=== PATIENT | male | born 1955 | race Caucasian/White ===

== ENCOUNTER → 2018-12-13 | Day surgery (SDC) | payer BC, MEDICARE ==
[~2018-12-13] MED LIST: ACETAMINOPHEN/CODEINE 300MG - 30MG TAB ONE; IBUPROFEN200 MG PO; LIDOCAINE HCL 2% LOCAL INJ 5 ML SDV VIAL INJ ONE; LOSARTAN POTAS100 MG PO; METOCLOPRAMIDE HCL 10 MG/2ML VIAL ONE; OMEPRAZOLE40 MG PO; PHYTONADIONE 10 MG/ML AMP SC ONE; PRENATAL DHA200 MG PO; PROPOFOL IV EMULSION 10 MG/ML 50 ML VIAL ONE; PROPRANOLOL HCL80 MG PO
[2018-12-13 11:30] VITALS: BP 159/77
--- NOTE | 2018-12-13 17:08 | Operative Report ---
DATE OF PROCEDURE: 12/13/2018 SURGEON: Jsoh De Anda MD PROCEDURE: EGD with banding of esophageal varices and biopsies. INDICATION FOR PROCEDURE: Anemia and history of esophageal variceal bleed. MEDICATION: The patient was done under MAC. Please see anesthesiologist's note. PROCEDURE IN DETAIL: With the patient in left lateral decubitus position, a flexible fiberoptic Olympus gastroscope was introduced into the esophagus under direct visualization. Grade 2 esophageal varices were noted. The scope was then advanced with ease into the stomach traversing a small sliding hiatal hernia. Mucosa overlying the antrum and the body revealed some mild changes compatible with mild portal hypertensive gastropathy. Multiple minute nodules were noted in the antrum and biopsies were obtained. The pylorus was of normal contour and shape, it was intubated with ease, and the scope was advanced all the way to the second portion of the duodenum. Biopsies were obtained from the proximal second portion and the duodenal bulb to rule out sprue. The scope was then withdrawn back into the stomach and retroflexed, and there was no evidence of any fundal or cardiac varices. The scope was then straightened out, it was subsequently withdrawn. The scope was then fitted for banding and reintroduced into the esophagus. Five bands were applied to 3 columns of varices. The scope was subsequently withdrawn and the patient tolerated procedure well. IMPRESSION: 1. Esophageal varices, grade 2, 5 bands applied to 3 columns of varices. 2. A small sliding hiatal hernia. 3. Mild portal hypertensive gastropathy. 4. Antrum, several minute nodules, biopsies obtained. 5. Rule out sprue. PLAN: Follow up histology. Continue current therapy. Increase omeprazole to 40 mg one p.o. q.a.m. a.c. Continue Inderal 80 mg one p.o. daily. The patient does have hepatitis C and we will proceed with appropriate therapy. He was very strongly advised to abstain religiously from alcohol. Josh De Anda MD [facility] [place] /[id number] cc: Josh MD Andrea Mitchell MD
--- OUTSIDE RECORDS SUMMARY | 2018-12-15 10:58 | XMS REPORT | Clinical Summary ---
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 Active propranolol (INDERAL) 20 Take 20 mg by 0 MG tablet mouth nightly as needed. 01/02/2018 Discontinued diazePAM (VALIUM) 5 MG Take 5 mg by 0 tablet mouth every 12 (twelve) hours as needed for anxiety. 02/06/2018 thiamine mononitrate, vit Take 1 tablet 30 tablet 0 B1, (B-1) 100 mg tablet (100 mg 8 total) by mouth daily for 30 days. 02/05/2018 ferrous sulfate 325 (65 Take 1 tablet 60 tablet 0 FE) MG tablet (325 mg 8 total) by mouth 2 (two) times a day with meals for 30 days. 02/05/2018 pantoprazole (PROTONIX) Take 1 tablet 30 tablet 0 40 MG EC tablet (40 mg total) 8 by mouth daily for 30 days. 02/05/2018 propranolol (INDERAL) 20 Take 1 tablet 60 tablet 0 MG tablet (20 mg total) 8 by mouth 2 (two) times a day for 30 days. 04/24/2018 esomeprazole (NexIUM) 40 Take 1 15 capsule 0 MG capsule capsule (40 8 mg total) by mouth daily before breakfast for 30 days. 04/29/2018 ondansetron ODT Take 1 tablet 20 tablet 0 (ZOFRAN-ODT) 4 MG (4 mg total) 8 disintegrating tablet by mouth every 8 (eight) hours as needed for nausea or vomiting for up to 30 days. 04/29/2018 simethicone (MYLICON) 80 Chew 1 tablet 25 tablet 0 MG chewable tablet (80 mg total) 8 every 6 (six) hours as needed for flatulence for up to 30 days. 04/29/2018 sertraline (ZOLOFT) 50 MG Take 1 tablet 30 tablet 0 tablet (50 mg total) 8 by mouth daily for 30 days. Active Problems Problem Noted Date Acute GI bleeding 03/25/2018 Upper GI bleed 01/02/2018 Encounters Care Team Description Date Type Specialty Jake Dooley MD ESOPHAGOGASTRODUODENOSCOPY (EGD) 03/27/2018 Surgery Gastroenterology Dakota Medellin MD 03/27/2018 Anesthesia Gastroenterology Event Victor Hugo Bush DO Joglekar, Swati, MD Acute GI bleeding (Primary Dx); Upper GI bleed 03/25/2018 Hospital General Internal Medicine - Encounter 03/30/2018 Desmond Luciano MD Gastrointestinal hemorrhage, unspecified gastrointestinal hemorrhage type (Primary Dx); Constipation, unspecified constipation type; Diverticulosis of large intestine without diverticulitis; Cirrhosis of liver without ascites, unspecified hepatic cirrhosis type; Splenomegaly 03/25/2018 Emergency Emergency Medicine Shawn Simpson MD ESOPHAGOGASTRODUODENOSCOPY (EGD) 01/02/2018 Surgery Gastroenterology vAila Ospina MD 01/02/2018 Anesthesia Gastroenterology Event Marvel Mattson MD Mokkala, Sandhya-Rani, MD Upper GI bleed (Primary Dx) 01/02/2018 Hospital General Internal Medicine - Encounter 01/06/2018 after 12/14/2017 Social History Date Tobacco Use Types Packs/Day Years Used Never Smoker Smokeless Tobacco: Never Used Alcohol Use Drinks/Week oz/Week Comments Yes 1/2 glass of rum daily Sex Assigned at Date Recorded Not on file Industry Job Start Date Occupation Not on file Not on file Not on file Travel End Travel History Travel Start No recent travel history available. Last Filed Vital Signs Time Taken Vital Sign Reading 03/30/2018 11:02 AM CDT Blood Pressure 154/70 03/30/2018 11:02 AM CDT Pulse 48 03/30/2018 11:02 AM CDT Temperature 36.8 C (98.2 F) 03/30/2018 11:02 AM CDT Respiratory Rate 18 03/30/2018 11:02 AM CDT Oxygen Saturation 94% - Inhaled Oxygen - Concentration 03/27/2018 5:00 AM CDT Weight 108 kg (237 lb 7 oz) 03/25/2018 8:17 PM CDT Height 170.2 cm (5' 7") 03/27/2018 5:00 AM CDT Body Mass Index 37.19 Plan of Treatment Health Maintenance Due Date Last Done Comments SHINGLES VACCINES (#1) 2003 INFLUENZA VACCINE 04/23/2018 65+ PNEUMOCOCCAL VACCINE 2018 (1 of 2 - PCV13) PNEUMOCOCCAL 2018 POLYSACCHARIDE VACCINE AGE 65 AND OVER COLON CANCER SCREENING 03/25/2028 03/25/2018 Implants Device Identifier Shelf Expiration Date Model / Serial / Lot Implanted Type 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 02/19/2018 [id number] / / [id number] Ligator Multiple-Band Endoscpc - Surgical N/A: N/A BSC [id number] Implants; ENDOSCOPY Implanted: 01/02/2018 (Quantity not Expanders; on file) Extenders; Surgical Wires 11/07/2018 [id number] / / [id number] Ligator Multiple-Band Endoscpc - Surgical N/A: N/A BSC [id number] Implants; ENDOSCOPY Implanted: 03/27/2018 (Quantity not Expanders; on file) Extenders; Surgical Wires Procedures Comments Procedure Name Priority Date/Time Associated Diagnosis HEMOGLOBIN & HEMATOCRIT Timed 03/28/2018 5:16 PM CDT HEMOGLOBIN & HEMATOCRIT Timed 03/28/2018 8:00 AM CDT ZZESTIMATED GFR Routine 03/28/2018 5:25 AM CDT MAGNESIUM LEVEL Routine 03/28/2018 5:25 AM CDT BASIC METABOLIC PANEL Routine 03/28/2018 5:25 AM CDT HC COMPLETE BLD COUNT Routine 03/28/2018 W/AUTO DIFF 1:30 AM CDT SMEAR REVIEW Timed 03/28/2018 12:00 AM CDT HEMOGLOBIN & HEMATOCRIT Timed 03/28/2018 12:00 AM CDT HEMOGLOBIN & HEMATOCRIT Timed 03/27/2018 4:00 PM CDT TRANSFUSE PLATELETS Routine 03/27/2018 1:03 PM CDT XR CHEST 1 VW PORTABLE STAT 03/27/2018 12:44 PM CDT ESOPHAGOGASTRODUODENOSCOP 03/27/2018 GI bleed Y (EGD) 11:15 AM CDT ZZESTIMATED GFR Routine 03/27/2018 4:50 AM CDT MAGNESIUM LEVEL Routine 03/27/2018 4:50 AM CDT BASIC METABOLIC PANEL Routine 03/27/2018 4:50 AM CDT HC COMPLETE BLD COUNT Routine 03/27/2018 W/AUTO DIFF 4:50 AM CDT HEMOGLOBIN & HEMATOCRIT Routine 03/26/2018 5:05 AM CDT TRANSFUSE RED BLOOD CELLS STAT 03/26/2018 3:35 AM CDT US HEPATIC STAT 03/26/2018 2:23 AM CDT PREPARE PLATELET PHERESIS Timed 03/25/2018 10:30 PM CDT PREPARE RBC Timed 03/25/2018 10:30 PM CDT ZZESTIMATED GFR STAT 03/25/2018 10:30 PM CDT ALCOHOL LEVEL, BLOOD STAT 03/25/2018 10:30 PM CDT COMPREHENSIVE METABOLIC STAT 03/25/2018 PANEL 10:30 PM CDT TYPE AND SCREEN Timed 03/25/2018 10:30 PM CDT PARTIAL THROMBOPLASTIN STAT 03/25/2018 TIME (PTT) 10:30 PM CDT PROTHROMBIN TIME WITH INR STAT 03/25/2018 10:30 PM CDT HC COMPLETE BLD COUNT STAT 03/25/2018 W/AUTO DIFF 10:30 PM CDT TX CRITICAL CARE, E/M Routine 03/25/2018 30-74 MINUTES 10:[address] ABDOMEN PELVIS W STAT 03/25/2018 CONTRAST 3:05 PM CDT URINALYSIS SCREEN AND STAT 03/25/2018 MICROSCOPY, WITH REFLEX 2:01 PM CDT TO CULTURE URINE CULTURE STAT 03/25/2018 2:01 PM CDT ZZESTIMATED GFR STAT 03/25/2018 1:47 PM CDT AMYLASE LEVEL STAT 03/25/2018 1:47 PM CDT LIPASE LEVEL STAT 03/25/2018 1:47 PM CDT PARTIAL THROMBOPLASTIN STAT 03/25/2018 TIME (PTT) 1:47 PM CDT PROTHROMBIN TIME WITH INR STAT 03/25/2018 1:47 PM CDT COMPREHENSIVE METABOLIC STAT 03/25/2018 PANEL 1:47 PM CDT HC COMPLETE BLD COUNT STAT 03/25/2018 W/AUTO DIFF 1:47 PM CDT OCCULT BLOOD, STOOL Routine 03/25/2018 1:20 PM CDT HC COMPLETE BLD COUNT Routine 01/06/2018 W/AUTO DIFF 5:03 AM CDT SMEAR REVIEW Routine 01/05/2018 5:48 AM CDT ZZESTIMATED GFR Routine 01/05/2018 5:48 AM CDT PHOSPHORUS LEVEL Routine 01/05/2018 5:48 AM CDT MAGNESIUM LEVEL Routine 01/05/2018 5:48 AM CDT HC COMPLETE BLD COUNT Routine 01/05/2018 W/AUTO DIFF 5:48 AM CDT COMPREHENSIVE METABOLIC Routine 01/05/2018 PANEL 5:48 AM CDT SMEAR REVIEW Routine 01/04/2018 12:52 PM CDT HC COMPLETE BLD COUNT Routine 01/04/2018 W/AUTO DIFF 12:52 PM CDT SMEAR REVIEW Routine 01/04/2018 4:50 AM CDT ZZESTIMATED GFR Routine 01/04/2018 4:50 AM CDT COMPREHENSIVE METABOLIC Routine 01/04/2018 PANEL 4:50 AM CDT HC COMPLETE BLD COUNT Routine 01/04/2018 W/AUTO DIFF 4:50 AM CDT SMEAR REVIEW Routine 01/03/2018 8:06 PM CDT HC COMPLETE BLD COUNT Routine 01/03/2018 W/AUTO DIFF 8:06 PM CDT ZZESTIMATED GFR Routine 01/03/2018 4:20 AM CDT PROTHROMBIN TIME WITH INR Routine 01/03/2018 4:20 AM CDT COMPREHENSIVE METABOLIC Routine 01/03/2018 PANEL 4:20 AM CDT HC COMPLETE BLD COUNT Routine 01/03/2018 W/AUTO DIFF 4:20 AM CDT TROPONIN STAT 01/02/2018 7:17 PM CDT HC COMPLETE BLD COUNT STAT 01/02/2018 W/AUTO DIFF 7:17 PM CDT TRANSFUSE RED BLOOD CELLS STAT 01/02/2018 5:54 PM CDT XR CHEST 1 VW PORTABLE Routine 01/02/2018 2:07 PM CDT TRANSFUSE RED BLOOD CELLS STAT 01/02/2018 1:40 PM CDT ECG 12-LEAD Routine 01/02/2018 12:47 PM CDT TROPONIN Routine 01/02/2018 12:44 PM CDT ESOPHAGOGASTRODUODENOSCOP 01/02/2018 upper gi bleed Y (EGD) 12:00 PM CDT ECG 12-LEAD STAT 01/02/2018 11:49 AM CDT PREPARE RBC Timed 01/02/2018 9:15 AM CDT ZZESTIMATED GFR STAT 01/02/2018 9:15 AM CDT TYPE AND SCREEN Timed 01/02/2018 9:15 AM CDT LIPASE LEVEL STAT 01/02/2018 9:15 AM CDT AMYLASE LEVEL STAT 01/02/2018 9:15 AM CDT COMPREHENSIVE METABOLIC STAT 01/02/2018 PANEL 9:15 AM CDT PROTHROMBIN TIME WITH INR STAT 01/02/2018 9:15 AM CDT HC COMPLETE BLD COUNT STAT 01/02/2018 W/AUTO DIFF 9:15 AM CDT TX CRITICAL CARE, ADDL 30 Routine 01/02/2018 MIN 9:06 AM CDT after 12/14/2017 Results * Hemoglobin & hematocrit (03/28/2018 5:16 PM CDT) Only the most recent of 5 results within the time period is included. HGB 8.6 (L) 14.0 - 18.0 g/dL [facility] DEPARTMENT OF PATHOLOGY AND GENOMIC MEDICINE HCT 27.1 (L) 41.0 - 51.0 % [facility] DEPARTMENT OF PATHOLOGY AND GENOMIC MEDICINE Specimen Blood Performing Organization Address City/State/Zipcode Phone Number [facility] [place] [place] [address] [place] [address] PATHOLOGY AND GENOMIC MEDICINE * Estimated GFR (03/28/2018 5:25 AM CDT) Only the most recent of 8 results within the time period is included. GFR Non Af Amer 61 mL/min/1.73 m2 [facility] DEPARTMENT OF PATHOLOGY AND GENOMIC MEDICINE GFR Af Amer 74 mL/min/1.73 m2 [facility] DEPARTMENT OF Comment: PATHOLOGY AND Chronic kidney disease: <60 GENOMIC MEDICINE mL/min/1.73m2 Kidney failure: <15 mL/min/1.73m2 The estimated GFR is calculated from the IDMS-traceable Modification of Diet in Renal Disease Equation. The accuracy of the calculation is poor when the creatinine is normal. Calculated values >90 mL/min/1.73m2 are not reported. This equation has not been validated in children (<18 years), women, the elderly (>70 years), or ethnic groups other than Caucasians and Americans. Specimen Plasma specimen Performing Organization Address City/[facility] Phone Number [address] * Magnesium level (03/28/2018 5:25 AM CDT) Only the most recent of 3 results within the time period is included. Magnesium 1.9 1.6 - 2.4 mg/dL [facility] PATHOLOGY [facility] [place] [facility] Specimen Plasma specimen Performing Organization Address City/[facility] Cent[facility] Phone Number [address] * Basic metabolic panel (03/28/2018 5:25 AM CDT) Only the most recent of 2 results within the time period is included. Sodium 140 135 - 148 mEq/L [facility] DEPARTMENT OF PATHOLOGY AND [place] MEDICINE Potassium 4.3 3.5 - 5.0 mEq/L [facility] DEPARTMENT OF PATHOLOGY AND GENOMIC MEDICINE Chloride 109 98 - 112 mEq/L [facility] DEPARTMENT OF PATHOLOGY AND GENOMIC MEDICINE CO2 24 24 - 31 mEq/L [facility] DEPARTMENT OF PATHOLOGY AND GENOMIC MEDICINE Anion gap 7@ANIO 7 - 15 mEq/L [facility] DEPARTMENT OF PATHOLOGY AND GENOMIC MEDICINE BUN 23 8 - 23 mg/dL [facility] DEPARTMENT OF PATHOLOGY AND [place] MEDICINE Creatinine 1.2 0.7 - 1.2 mg/dL [facility] DEPARTMENT OF PATHOLOGY AND GENOMIC MEDICINE Glucose 123 (H) 65 - 99 mg/dL [facility] DEPARTMENT OF PATHOLOGY AND [place] MEDICINE Calcium 7.8 (L) 8.8 - 10.2 mg/dL [facility] DEPARTMENT OF PATHOLOGY AND GENOMIC MEDICINE Specimen Plasma specimen Performing Organization Address City/[facility] Centercode Phone Number [facility] [address] [place] [address] PATHOLOGY [facility] GENOMIC MEDICINE * CBC with platelet and differential (03/28/2018 1:30 AM CDT) Only the most recent of 12 results within the time period is included. WBC 7.03 4.50 - 11.00 k/uL [facility] DEPARTMENT OF PATHOLOGY AND GENOMIC MEDICINE RBC 2.62 (L) 4.40 - 6.00 m/uL [facility] DEPARTMENT OF PATHOLOGY AND GENOMIC MEDICINE HGB 7.9 (L) 14.0 - 18.0 g/dL [facility] DEPARTMENT OF PATHOLOGY AND GENOMIC MEDICINE HCT 25.1 (L) 41.0 - 51.0 % [facility] DEPARTMENT OF PATHOLOGY AND GENOMIC MEDICINE MCV 95.8 82.0 - 100.0 fL [facility] DEPARTMENT OF PATHOLOGY AND GENOMIC MEDICINE MCH 30.2 27.0 - 34.0 pg [facility] DEPARTMENT OF PATHOLOGY AND GENOMIC MEDICINE MCHC 31.5 31.0 - 37.0 g/dL [facility] DEPARTMENT OF PATHOLOGY AND GENOMIC MEDICINE RDW - SD 57.2 (H) 37.0 - 55.0 fL [facility] DEPARTMENT OF PATHOLOGY AND GENOMIC MEDICINE MPV 11.7 8.8 - 13.2 fL [facility] DEPARTMENT OF PATHOLOGY AND GENOMIC MEDICINE Platelet count 68 (L) 150 - 400 k/uL [facility] DEPARTMENT OF PATHOLOGY AND GENOMIC MEDICINE Nucleated RBC 0.00 /100 WBC [facility] DEPARTMENT OF PATHOLOGY AND GENOMIC MEDICINE Neutrophils 70.1 (H) 39.0 - 69.0 % [facility] DEPARTMENT OF PATHOLOGY AND GENOMIC MEDICINE Lymphocytes 20.2 (L) 25.0 - 45.0 % [facility] DEPARTMENT OF PATHOLOGY AND GENOMIC MEDICINE Monocytes 6.8 0.0 - 10.0 % [facility] DEPARTMENT OF PATHOLOGY AND GENOMIC MEDICINE Eosinophils 2.3 0.0 - 5.0 % [facility] DEPARTMENT OF PATHOLOGY AND GENOMIC MEDICINE Basophils 0.3 0.0 - 1.0 % [facility] DEPARTMENT OF PATHOLOGY AND GENOMIC MEDICINE Specimen Blood Performing Organization Address City/[facility]/Zipcode Phone Number [facility] [address] [place] [address] PATHOLOGY AND GENOMIC MEDICINE * Smear review (03/28/2018 12:00 AM CDT) Only the most recent of 5 results within the time period is included. Smear review Smear Reviewed [facility] DEPARTMENT OF PATHOLOGY AND GENOMIC MEDICINE Performing Organization Address City/State/Zipcode Phone Number [facility] [place] [place] [address] [address] [place] [address] PATHOLOGY AND GENOMIC MEDICINE * Transfuse platelets (03/27/2018 1:03 PM CDT) Only the most recent of 2 results within the time period is included. * XR Chest 1 Vw Portable (03/27/2018 12:44 PM CDT) Only the most recent of 2 results within the time period is included. Narrative Performed At EXAMINATION:XR CHEST 1 VW PORTABLE [facility] CLINICAL HISTORY:Chest Pain COMPARISON:2017 FINDINGS: The heart size is mildly enlarged. The mediastinum is otherwise unremarkable. There is mild atelectasis at the left lung base. A vague density projects in the right midlung which may be artifactual although follow-up is suggested. This is at the level of the anterior right third rib. If this density persists follow-up with CT is suggested. IMPRESSION: 1. The heart is mildly enlarged. 2. Mild opacity at the level of the anterior right third rib [id number] Procedure Note Hm Interface, Radiology Results Incoming - 03/27/2018 1:15 PM CDT EXAMINATION: XR CHEST 1 VW PORTABLE CLINICAL HISTORY: Chest Pain COMPARISON: 2017 FINDINGS: The heart size is mildly enlarged. The mediastinum is otherwise unremarkable. There is mild atelectasis at the left lung base. A vague density projects in the right midlung which may be artifactual although follow-up is suggested. This is at the level of the anterior right third rib. If this density persists follow-up with CT is suggested. IMPRESSION: 1. The heart is mildly enlarged. 2. Mild opacity at the level of the anterior right third rib [id number] Performing Organization Address City/State/Zipcode Phone Number [facility] [address] [place] [address] * Transfuse RBC (03/26/2018 3:35 AM CDT) Only the most recent of 4 results within the time period is included. * US Hepatic (03/26/2018 2:23 AM CDT) Narrative Performed At EXAMINATION:US HEPATIC [facility] CLINICAL HISTORY:elevated T-bili ro biliary stones COMPARISON:None. IMPRESSION: Coarse nodular contour of the liver is seen, compatible with cirrhosis. No masses are seen on this limited assessment. If there is further clinical concern for a mass, CT liver mass protocol or MRI would be the exam of choice. The main portal vein measures 1.1 cm and demonstrates expected hepatopedal flow. Common bile measures 3.2 mm. No ascites. No pleural effusion is seen. [id number] Procedure Note Hm Interface, Radiology Results Incoming - 03/26/2018 3:12 AM CDT EXAMINATION: US HEPATIC CLINICAL HISTORY: elevated T-bili ro biliary stones COMPARISON: None. IMPRESSION: Coarse nodular contour of the liver is seen, compatible with cirrhosis. No masses are seen on this limited assessment. If there is further clinical concern for a mass, CT liver mass protocol or MRI would be the exam of choice. The main portal vein measures 1.1 cm and demonstrates expected hepatopedal flow. Common bile measures 3.2 mm. No ascites. No pleural effusion is seen. [id number] Performing Organization Address City/State/Zipcode Phone Number [facility] [address] [place] [address] * Prepare platelet pheresis, 1 Units (03/25/2018 10:30 PM CDT) Product name Apheresis Platelet ACDA LR #1 [facility] DEPARTMENT OF PATHOLOGY AND GENOMIC MEDICINE Unit number [id number] [facility] DEPARTMENT OF PATHOLOGY AND GENOMIC MEDICINE Product code [id number] [facility] DEPARTMENT OF PATHOLOGY AND GENOMIC MEDICINE Dispense status Transfused [facility] DEPARTMENT OF PATHOLOGY AND GENOMIC MEDICINE Blood expiration date [facility] DEPARTMENT OF PATHOLOGY AND GENOMIC MEDICINE Blood type code 9500 [facility] DEPARTMENT OF PATHOLOGY AND GENOMIC MEDICINE Blood type O NEGATIVE [facility] DEPARTMENT OF PATHOLOGY AND GENOMIC MEDICINE Performing Organization Address City/[facility]/Zipcode Phone Number [address] [place] [address] PATHOLOGY AND GENOMIC MEDICINE * Partial thromboplastin time, activated (03/25/2018 10:30 PM CDT) Only the most recent of 2 results within the time period is included. PTT 27.6 23.0 - 36.0 sec [facility] DEPARTMENT OF Comment: PATHOLOGY AND PTT therapeutic range for [facility] unfractionated heparin is 61.0-112.0 seconds which corresponds to Anti-Xa 0.3-0.7 U/ml. Specimen Blood Performing Organization Address [facility] Centerconm Phone Number [address] [place] [address] PATHOLOGY AND [facility] * Prothrombin time with INR (03/25/2018 10:30 PM CDT) Only the most recent of 4 results within the time period is included. Prothrombin time 16.3 (H) 12.0 - 15.0 sec [facility] DEPARTMENT OF PATHOLOGY AND GENOMIC MEDICINE INR 1.3 [facility] DEPARTMENT OF Comment: PATHOLOGY AND The International Normalized [facility] Ratio (INR) is a therapeutic monitoring tool for patients who are stable on oral anticoagulant therapy. An INR of 2.0-3.0 is suggested for deep vein thrombosis/pulmonary embolism. Specimen Blood Performing Organization Address [facility] Phone Number [address] [place] [address] PATHOLOGY [facility] * Prepare RBC, 1 Units (03/25/2018 10:30 PM CDT) Only the most recent of 2 results within the time period is included. Product name Red Blood Cells -1, Leukored [facility] DEPARTMENT OF PATHOLOGY AND GENOMIC MEDICINE Unit number [id number] [facility] DEPARTMENT OF PATHOLOGY AND GENOMIC MEDICINE Product code [id number] [facility] DEPARTMENT OF PATHOLOGY AND GENOMIC MEDICINE Dispense status Transfused [facility] DEPARTMENT OF PATHOLOGY AND GENOMIC MEDICINE Blood expiration date [id number] [facility] DEPARTMENT OF PATHOLOGY AND GENOMIC MEDICINE Blood type code 5100 [facility] DEPARTMENT OF PATHOLOGY AND GENOMIC MEDICINE Blood type O POSITIVE [facility] DEPARTMENT OF PATHOLOGY AND GENOMIC MEDICINE Performing Organization Address [facility] Phone Number [address] [place] [address] PATHOLOGY AND GENOMIC MEDICINE * Type and screen (03/25/2018 10:30 PM CDT) Only the most recent of 2 results within the time period is included. ABO grouping O [facility] DEPARTMENT OF PATHOLOGY AND GENOMIC MEDICINE Rh type POS [facility] DEPARTMENT OF PATHOLOGY AND GENOMIC MEDICINE Antibody screen NEG [facility] DEPARTMENT OF PATHOLOGY AND [place] MEDICINE Specimen Blood Performing Organization Address City/State/Zipcode Phone Number [facility] [place] [address] [place] [address] PATHOLOGY AND GENOMIC MEDICINE * Alcohol level, blood (03/25/2018 10:30 PM CDT) Alcohol None Detected mg/dL [facility] DEPARTMENT OF Comment: PATHOLOGY AND Normal GENOMIC MEDICINE None Detected Legal Intoxication in [place]80 mg/dL (0.08%) - Whole Blood Toxic Concentration 200 mg/dL (0.2%) Potentially Fatal3 50 - 500 mg/dL (0.35 - 0.5%) Alcohol percent None Detected % [facility] DEPARTMENT OF PATHOLOGY AND GENOMIC MEDICINE Specimen Plasma specimen Performing Organization Address City/[facility]/Zipcode Phone Number [place] [address] [address] PATHOLOGY AND GENOMIC MEDICINE * Comprehensive metabolic panel (03/25/2018 10:30 PM CDT) Only the most recent of 6 results within the time period is included. Sodium 138 135 - 148 mEq/L [facility] DEPARTMENT OF PATHOLOGY AND GENOMIC MEDICINE Potassium 4.1 3.5 - 5.0 mEq/L [facility] DEPARTMENT OF PATHOLOGY AND GENOMIC MEDICINE Chloride 104 98 - 112 mEq/L [facility] DEPARTMENT OF PATHOLOGY AND GENOMIC MEDICINE CO2 23 (L) 24 - 31 mEq/L [facility] DEPARTMENT OF PATHOLOGY AND GENOMIC MEDICINE Anion gap 11@ANIO 7 - 15 mEq/L [facility] DEPARTMENT OF PATHOLOGY AND GENOMIC MEDICINE BUN 38 (H) 8 - 23 mg/dL [facility] DEPARTMENT OF PATHOLOGY AND GENOMIC MEDICINE Creatinine 1.0 0.7 - 1.2 mg/dL [facility] DEPARTMENT OF PATHOLOGY AND GENOMIC MEDICINE Glucose 223 (H) 65 - 99 mg/dL [facility] DEPARTMENT OF PATHOLOGY AND GENOMIC MEDICINE Calcium 8.5 (L) 8.8 - 10.2 mg/dL [facility] DEPARTMENT OF PATHOLOGY AND GENOMIC MEDICINE Protein 6.5 6.3 - 8.3 g/dL [facility] DEPARTMENT OF Comment: PATHOLOGY AND [place] GENOMIC MEDICINE 4.6-7.0 g/dL 1 week 4.4-7.6 g/dL 7 months-1year 5.1-7.3 g/dL 1-2 years5.6-7 .5 g/dL >3 years6.0-8 .0 g/dL 18-150 6.3-8.3 g/dL Albumin 3.1 (L) 3.5 - 5.0 g/dL [facility] DEPARTMENT OF PATHOLOGY AND GENOMIC MEDICINE A/G ratio 0.9 0.7 - 3.8 [facility] DEPARTMENT OF PATHOLOGY AND GENOMIC MEDICINE Alkaline phosphatase 80 40 - 129 U/L [facility] DEPARTMENT OF PATHOLOGY AND GENOMIC MEDICINE AST 163 (H) 10 - 50 U/L [facility] DEPARTMENT OF PATHOLOGY AND GENOMIC MEDICINE ALT 148 (H) 5 - 50 U/L [facility] DEPARTMENT OF PATHOLOGY AND GENOMIC MEDICINE Total bilirubin 1.5 (H) 0.0 - 1.2 mg/dL [facility] DEPARTMENT OF PATHOLOGY AND GENOMIC MEDICINE Specimen Plasma specimen Performing Organization Address City/State/Zipcode Phone Number [facility] [address] [address] PATHOLOGY AND GENOMIC MEDICINE * CRITICAL CARE (03/25/2018 10:07 PM CDT) Narrative Performed At Victor Hugo Bush DO 03/26/20183:24 AM Critical Care Performed by: VICTOR HUGO BUSH Authorized by: VICTOR HUGO BUSH Critical care provider statement: Critical care time (minutes):60 Critical care time was exclusive of:Separately billable procedures and treating other patients Critical care was necessary to treat or prevent imminent or life-threatening deterioration of the following conditions:Circulatory failure Critical care was time spent personally by me on the following activities:Development of treatment plan with patient or surrogate, discussions with primary provider, evaluation of patient's response to treatment, examination of patient, obtaining history from patient or surrogate, re-evaluation of patient's condition, pulse oximetry, ordering and review of radiographic studies, ordering and review of laboratory studies and ordering and performing treatments and interventions [place]ila 'yes' if you are taking over critical care for this patient from another provider.: no * CT Abdomen Pelvis W Contrast (03/25/2018 3:05 PM CDT) Addenda Addendum by Miguel A Castellano MD on 03/25/2018 4:21 PM ADDENDUM #1 In the impression of the report it should read: There is a large amount of stool present in the colon Narrative Performed At EXAMINATION:CT ABDOMEN PELVIS W CONTRAST HM [facility]IANT CLINICAL HISTORY: 62 yearsMale Abd painunspecified, abdomenal pain TECHNIQUE: Multiple axial images of the abdomen and pelvis were obtained following intravenous administration of iodinated contrast. Sagittal and coronal computerized reformatted images were also obtained. CT imaging was performed with iterative reconstruction techniques and/or automated exposure control to reduce radiation dose. COMPARISON:None. Findings: The lung bases appear unremarkable. The liver demonstrates diffuse fatty infiltration. Its margins are slightly lobular cirrhosis is not excluded. No focal lesion is visualized. The spleen is enlarged measuring 17 to 18 cm in diameter. A small hypodense lesion along the lateral margin of the superior spleen measuring 15 mm is present which is not definitively characterized although is probably related to small cyst. The adrenal glands pancreas and gallbladder appear within normal limits. There is no free fluid noted in the abdomen or pelvis. The right kidney contains areas of low attenuation probably related to small cysts the largest in the upper pole medially measuring approximately 11 mm. The largest on the left measuring 3.2 cm in the mid lateral cortex consistent with a cyst. No obstructing calculi are identified. There is an opaque structure within the ileum near the cecum which may related to a pill in the GI tract although this is entirely certain. This is most likely in the ileum proximal to the ileocecal valve. The prostate demonstrates some calcification and is mildly enlarged. There is diverticulosis of the sigmoid area in particular without specific evidence of diverticulitis. There are no additional findings of significance noted. There is a fairly large volume of stool present in the colon. IMPRESSION: 1. There is a large amount of present in the colon. There is diverticulosis diffusely involving the sigmoid area. 2. Calcification or other opaque density within the distal ileum proximal to the ileocecal valve etiology uncertain. 3. Splenomegaly with changes suggesting cirrhosis of the liver with a cyst involving the superior spleen laterally although this is not definitive. 4. Probable bilateral renal cysts. [id number] Procedure Note Hm Interface, Radiology Results Incoming - 03/25/2018 3:22 PM CDT EXAMINATION: CT ABDOMEN PELVIS W CONTRAST CLINICAL HISTORY: 62 yearsMale Abd pain unspecified, abdomenal pain TECHNIQUE: Multiple axial images of the abdomen and pelvis were obtained following intravenous administration of iodinated contrast. Sagittal and coronal computerized reformatted images were also obtained. CT imaging was performed with iterative reconstruction techniques and/or automated exposure control to reduce radiation dose. COMPARISON: None. Findings: The lung bases appear unremarkable. The liver demonstrates diffuse fatty infiltration. Its margins are slightly lobular cirrhosis is not excluded. No focal lesion is visualized. The spleen is enlarged measuring 17 to 18 cm in diameter. A small hypodense lesion along the lateral margin of the superior spleen measuring 15 mm is present which is not definitively characterized although is probably related to small cyst. The adrenal glands pancreas and gallbladder appear within normal limits. There is no free fluid noted in the abdomen or pelvis. The right kidney contains areas of low attenuation probably related to small cysts the largest in the upper pole medially measuring approximately 11 mm. The largest on the left measuring 3.2 cm in the mid lateral cortex consistent with a cyst. No obstructing calculi are identified. There is an opaque structure within the ileum near the cecum which may related to a pill in the GI tract although this is entirely certain. This is most likely in the ileum proximal to the ileocecal valve. The prostate demonstrates some calcification and is mildly enlarged. There is diverticulosis of the sigmoid area in particular without specific evidence of diverticulitis. There are no additional findings of significance noted. There is a fairly large volume of stool present in the colon. IMPRESSION: 1. There is a large amount of present in the colon. There is diverticulosis diffusely involving the sigmoid area. 2. Calcification or other opaque density within the distal ileum proximal to the ileocecal valve etiology uncertain. 3. Splenomegaly with changes suggesting cirrhosis of the liver with a cyst involving the superior spleen laterally although this is not definitive. 4. Probable bilateral renal cysts. [facility]-[id number] Performing Organization Address City/State/Zipcode Phone Number [facility] [address] [place] [address] * Urinalysis screen and microscopy, with reflex to culture (03/25/2018 2:01 PM CDT) Specimen site Clean catch [facility] DEPARTMENT OF PATHOLOGY AND GENOMIC MEDICINE Color, UA Yellow [facility] DEPARTMENT OF PATHOLOGY AND GENOMIC MEDICINE Appearance, UA Clear [facility] DEPARTMENT OF PATHOLOGY AND GENOMIC MEDICINE Specific gravity, UA 1.017 1.001 - 1.035 [facility] DEPARTMENT OF PATHOLOGY AND GENOMIC MEDICINE pH, UA 7.0 5.0 - 8.5 [facility] DEPARTMENT OF PATHOLOGY AND GENOMIC MEDICINE Protein, UA Negative Negative [facility] DEPARTMENT OF PATHOLOGY AND GENOMIC MEDICINE Glucose, UA Negative Negative [facility] DEPARTMENT OF PATHOLOGY AND GENOMIC MEDICINE Ketones, UA Negative Negative [facility] DEPARTMENT OF PATHOLOGY AND GENOMIC MEDICINE Bilirubin, UA Negative Negative [facility] DEPARTMENT OF PATHOLOGY AND GENOMIC MEDICINE Blood, UA Negative Negative [facility] DEPARTMENT OF PATHOLOGY AND GENOMIC MEDICINE Nitrite, UA Negative Negative [facility] DEPARTMENT OF PATHOLOGY AND GENOMIC MEDICINE Urobilinogen, UA 2.0 (A) <2.0 [facility] DEPARTMENT OF PATHOLOGY AND GENOMIC MEDICINE Leukocyte esterase, UA Negative Negative [facility] DEPARTMENT OF PATHOLOGY AND GENOMIC MEDICINE WBC, UA 0-5 0 - 1 /HPF [facility] DEPARTMENT OF PATHOLOGY AND GENOMIC MEDICINE RBC, UA 0-5 0 - 5 /HPF [facility] DEPARTMENT OF PATHOLOGY AND GENOMIC MEDICINE Bacteria, UA None seen None seen [facility] DEPARTMENT OF PATHOLOGY AND GENOMIC MEDICINE Yeast, UA None seen [facility] DEPARTMENT OF PATHOLOGY AND GENOMIC MEDICINE Yeast with pseudohyphae, None seen [facility] DEPARTMENT OF UA PATHOLOGY AND GENOMIC MEDICINE Specimen Urine Performing Organization Address [facility] Phone Number [address] [place] [address] [facility] MEDICINE * Urine culture (03/25/2018 2:01 PM CDT) Urine culture SEE COMMENTComment: [facility] DEPARTMENT OF Bacteriuria screen negative. PATHOLOGY AND GENOMIC MEDICINE Specimen Urine Performing Organization Address [facility] Number [address] [place] [address] PATHOLOGY [facility] * Lipase level (03/25/2018 1:47 PM CDT) Only the most recent of 2 results within the time period is included. Lipase 30 13 - 60 U/L [facility] DEPARTMENT OF PATHOLOGY AND GENOMIC MEDICINE Specimen Plasma specimen Performing Organization Address [facility] Phone Number [address] [place] [address] PATHOLOGY [facility] * Amylase level (03/25/2018 1:47 PM CDT) Only the most recent of 2 results within the time period is included. Amylase 65 13 - 73 U/L [facility] DEPARTMENT OF PATHOLOGY AND GENOMIC MEDICINE Specimen Plasma specimen Performing Organization Address [facility] Phone Number [address] [place] [address] PATHOLOGY [facility] * Occult blood, stool (03/25/2018 1:20 PM CDT) Occult blood, stool Positive for Occult blood (A) [facility] DEPARTMENT OF Comment: PATHOLOGY AND Specimen Information [facility] MEDICINE Specimen Source: Stool Specimen Site: Not otherwise specified Specimen Stool - Not otherwise specified Performing Organization Address [facility] Phone Number [address] [place] [address] PATHOLOGY AND GENOMIC MEDICINE * Phosphorus level (01/05/2018 5:48 AM CDT) Phosphorus 2.6 2.4 - 4.5 mg/dL [facility] DEPARTMENT OF PATHOLOGY AND [place] MEDICINE Specimen Plasma specimen Performing Organization Address [facility] Phone Number [address] [place] [address] PATHOLOGY AND [place] MEDICINE * Troponin (01/02/2018 7:17 PM CDT) Only the most recent of 2 results within the time period is included. Troponin <0.300 0.000 - 0.300 ng/mL [facility] DEPARTMENT OF Comment: PATHOLOGY AND 0.30 - 1.49 GENOMIC MEDICINE ng/mlMay indicate increased risk of acute coronary syndrome. >=1.5 ng/ml Consistent with acute myocardial infarction. The diagnostic value of a single normal or non-diagnostic result is questionable.Serial samples at 2-6 hour intervals are required to rule out acute myocardial injury. Specimen Plasma specimen Performing Organization Address [facility] Phone Number [address] [place] [address] PATHOLOGY AND [place] MEDICINE * ECG 12 lead (01/02/2018 12:47 PM CDT) Only the most recent of 2 results within the time period is included. Ventricular rate 83 [facility] Atrial rate 83 [facility] TX interval 150 [facility] QRSD interval 86 [facility] QT interval 382 [facility] QTC interval 448 [facility] P axis 1 30 [facility] QRS axis 1 36 [facility] T wave axis 38 [facility] EKG impression Normal sinus rhythm-Normal [facility] ECG-In automated comparison with ECG of 02-JAN-2018 11:49,-No significant change was found- Performing Organization Address [facility] Phone Number [facility] [address] [place] [address] * CRITICAL CARE (01/02/2018 9:06 AM CDT) Narrative Performed At Marvel Barnes MD 01/02/2018 10:26 AM Critical Care Performed by: MARVEL MATTSON Authorized by: MARVEL MATTSON Critical care provider statement: Critical care time (minutes):30 Critical care time was exclusive of:Separately billable procedures and treating other patients Critical care was necessary to treat or prevent imminent or life-threatening deterioration of the following conditions: blood transfusion Critical care was time spent personally by me on the following activities:Blood draw for specimens, discussions with consultants, development of treatment plan with patient or surrogate, discussions with primary provider, evaluation of patient's response to treatment, examination of patient, obtaining history from patient or surrogate, review of old charts, re-evaluation of patient's condition, pulse oximetry, ordering and review of radiographic studies, ordering and review of laboratory studies and ordering and performing treatments and interventions Avila 'yes' if you are taking over critical care for this patient from another provider.: yes after 12/14/2017 Advance Directives Patient has advance care planning documents, and code status on file. For more i nformation, please contact: Shawn Fitzpatrick [address] [place] [address] Date Inactivated Comments Code Status Date Activated 01/06/2018 9:57 PM Full Code 01/02/2018 11:20 AM Code Status decision reached by: Patient
== END | disposition home or self-care (01) ==
LOC: OR 06:23
PROVIDERS: ATTEND Internal Medicine Gastroenterology
DX: I85.00 Esophageal varices without bleeding (principal); R94.5 Abnormal results of liver function studies; D64.9 Anemia, unspecified; G47.33 Obstructive sleep apnea (adult) (pediatric); I25.2 Old myocardial infarction; K44.9 Diaphragmatic hernia without obstruction or gangrene; K76.6 Portal hypertension; K31.89 Other diseases of stomach and duodenum
CPT/HCPCS: 43239; 43244; J2001; J2704; J2765; J3430

== ENCOUNTER → 2019-01-17 | Day surgery (SDC) | payer BC, MEDICARE ==
[2019-01-14 11:04] LABS: INR 1.05; PROTHROMBIN TIME 14.2 seconds (11.9-14.5)
[2019-01-14 11:05] LABS: PARTIAL THROMBOPLASTIN TIME 30.4 seconds (23.8-35.5)
[2019-01-14 11:06] LABS: BASOPHILS % 0.5 % (0.0-1.0); EOSINOPHILS # (AUTO) 0.2 (0.0-0.4); EOSINOPHILS % 4.3 % (0.0-6.0); HEMATOCRIT 38.2 % (38.2-49.6); HEMOGLOBIN 11.9 g/dL (14.0-18.0); LYMPHOCYTES # (AUTO) 0.9 (1.0-3.2); LYMPHOCYTES % 22.5 % (18.0-39.1); MEAN CORPUSCULAR HEMOGLOBIN 28.7 pg (28-32); MEAN CORPUSCULAR HGB CONC 31.2 g/dL (31-35); MEAN CORPUSCULAR VOLUME 92.3 fL (81-99); MONOCYTES # (AUTO) 0.5 (0.2-0.8); MONOCYTES % 11.1 % (4.4-11.3); NEUTROPHILS # (AUTO) 2.5 (2.1-6.9); NEUTROPHILS % 61.4 % (38.7-80.0); RED BLOOD COUNT 4.14 x10e6/uL (4.3-5.7); RED CELL DISTRIBUTION WIDTH 24.2 % (11.7-14.4)
[2019-01-14 11:13] LABS: ALANINE AMINOTRANSFERASE 263 IU/L (0-55); ALBUMIN 3.2 g/dL (3.5-5.0); ALBUMIN/GLOBULIN RATIO 0.8 (0.8-2.0); ALKALINE PHOSPHATASE 78 IU/L (40-150); ANION GAP 9.4 mmol/L (8-16); BLOOD UREA NITROGEN 22 mg/dL (7-26); BUN/CREATININE RATIO 21 (6-25); CALCIUM 9.6 mg/dL (8.4-10.2); CARBON DIOXIDE 27 mmol/L (22-29); CHLORIDE 103 mmol/L (98-107); CREATININE, SERUM 1.03 mg/dL (0.72-1.25); EST GLOMERULAR FILTRATION RATE > 60 ML/MIN (60-); GLUCOSE 117 mg/dL (74-118); POTASSIUM 4.4 mmol/L (3.5-5.1); SODIUM 135 mmol/L (136-145)
[2019-01-14 11:36] LABS: PLATELET COUNT 52 x10e3/uL (140-360)
[2019-01-14 11:41] LABS: ANISOCYTOSIS SLIGHT; HYPOCHROMASIA SLIGHT; PLATELET ESTIMATE SLIGHTLY DECREASED; PLATELET MORPHOLOGY COMMENT NORMAL; RBC MORPHOLOGY COMMENT NORMAL
[~2019-01-17] MED LIST changes: -ACETAMINOPHEN/CODEINE 300MG - 30MG TAB ONE; +FENTANYL CITRATE/PF 100MCG/2 ML INJ ONE; -METOCLOPRAMIDE HCL 10 MG/2ML VIAL ONE; +MIDAZOLAM HCL 2 MG/2 ML VIAL ONE; -PHYTONADIONE 10 MG/ML AMP SC ONE
[2019-01-17 09:10] VITALS: BP 195/102
--- NOTE | 2019-01-17 16:20 | Operative Report ---
DATE OF PROCEDURE: 01/17/2019 SURGEON: Josh De Anda MD PROCEDURE: Esophagogastroduodenoscopy with banding of esophageal varices. INDICATIONS FOR PROCEDURE: Cirrhosis of the liver, status post EGD with banding. In for additional banding of esophageal varices. MEDICATIONS: The patient was done under MAC, please see anesthesiologist's note. PROCEDURE IN DETAIL: With the patient in left lateral decubitus position, flexible fiberoptic Olympus gastroscope was introduced into the esophagus under direct visualization without any difficulty. Grade 2 to 3 esophageal varices were noted without active bleeding. One varix had a little red reginaldo, the scope was then advanced with ease into the stomach and there were mucosal changes compatible with portal hypertensive gastropathy more prominent in the antrum. The pylorus was intubated and the scope was advanced into the terminal ileum. The scope was then withdrawn slowly, mucosa overlying the proximal second portion and the duodenal bulb grossly appeared to be within normal limits. The scope was then withdrawn back into the stomach and retroflexed, mucosa overlying the fundus and the cardia grossly appeared to be within normal limits. There was no evidence of cardia or fundal varices. The scope was then straightened out, it was subsequently withdrawn. The scope was then fitted for banding was reintroduced into the esophagus. Six bands were applied to 3 columns of varices. The patient tolerated the procedure well. IMPRESSION: 1. Grade 2 to 3 esophageal varices, six bands applied to 3 columns of varices. 2. Portal hypertensive gastropathy. PLAN: Follow H and H. Continue Inderal 80 mg one p.o. daily, Protonix 40 mg one p.o. q.a.m. a.c. The patient was very strongly advised to abstain religiously from alcohol. Josh De Anda MD [facility] /[id number] cc: Andrea Miller MD
--- OUTSIDE RECORDS SUMMARY | 2019-01-19 10:56 | XMS REPORT | Clinical Summary ---
Author Author [place] [facility] Organization [place] [facility] Address Unknown Phone Unavailable Care Team Providers Care Pourer Buggy Ladle Name Role Phone Asked, No Pcp PCP Unavailable Allergies No Known Allergies Medications End Date Status Medication Sig Dispensed Refills Start Date Active propranolol (INDERAL) 10 Take 30 mg by 0 MG tablet mouth every morning. Active propranolol (INDERAL) 20 Take 20 mg by 0 MG tablet mouth nightly as needed. 02/06/2018 thiamine mononitrate, vit Take 1 tablet [...] bleeding (Primary Dx); Upper GI bleed 03/25/2018 [facility] Internal Medicine - Encounter 03/30/2018 Desmond Luciano MD Gastrointestinal hemorrhage, unspecified gastrointestinal hemorrhage type (Primary Dx); Constipation, unspecified constipation type; Diverticulosis of large intestine without diverticulitis; Cirrhosis of liver without ascites, unspecified hepatic cirrhosis type; Splenomegaly 03/25/2018 Emergency Emergency Medicine after 01/18/2018 Social History Date Tobacco Use Types Packs/Day [...] Last Done Comments SHINGLES VACCINES (#1) 2003 65+ PNEUMOCOCCAL VACCINE 2018 (1 of 2 - PCV13) PNEUMOCOCCAL 2018 POLYSACCHARIDE VACCINE AGE 65 AND OVER INFLUENZA VACCINE 04/23/2019 COLON CANCER SCREENING 03/25/2028 03/25/2018 Implants Device Identifier Shelf Expiration Date Model / Serial / Lot Implanted Type 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 02/19/2018 [id number] / / [id number] Ligator Multiple-Band Endoscpc - Surgical N/A: N/A BS [id number] Implants; ENDOSCOPY Implanted: 01/02/2018 (Quantity not Expanders; on file) Extenders; Surgical Wires 11/07/2018 [id number] / / [id number] Ligator Multiple-Band Endoscpc - Surgical N/A: N/A [facility] [place] [id number] Implants; ENDOSCOPY Implanted: 03/27/2018 (Quantity not Expanders; [...] STAT 03/25/2018 W/AUTO DIFF 10:30 PM CDT [facility] CRITICAL CARE, E/M Routine 03/25/2018 30-74 MINUTES [...] BLOOD, STOOL Routine 03/25/2018 1:20 PM CDT after 01/18/2018 Results * Hemoglobin & hematocrit (03/28/2018 5:16 PM CDT) Only the most recent of 5 results within the time period is included. HGB 8.6 (L) 14.0 - 18.0 g/dL [facility] DEPARTMENT OF PATHOLOGY AND GENOMIC MEDICINE HCT 27.1 (L) 41.0 - 51.0 % [facility] DEPARTMENT OF PATHOLOGY AND GENOMIC MEDICINE Specimen Blood Performing Organization Address City/State/Zipcode Phone Number [place] [address] [place] [address] PATHOLOGY AND GENOMIC MEDICINE * Estimated GFR (03/28/2018 5:25 AM CDT) Only the most recent of 4 results within the time period is included. GFR Non Af Amer 61 mL/min/1.73 m2 [facility] DEPARTMENT OF PATHOLOGY AND GENOMIC MEDICINE GFR Af Amer 74 mL/min/1.73 m2 [facility] DEPARTMENT OF Comment: PATHOLOGY AND Chronic kidney [...] Americans. Specimen Plasma specimen Performing Organization Address [facility] Phone Number [address] * Magnesium level (03/28/2018 5:25 AM CDT) Only the most recent of 2 results within the time period is included. Magnesium 1.9 1.6 - 2.4 mg/dL [facility] Specimen Plasma specimen Performing Organization Address [facility] Phone Number [address] * Basic metabolic panel (03/28/2018 5:25 AM CDT) Only the most recent of 2 results within the time period is included. Sodium 140 135 - 148 mEq/L [facility] DEPARTMENT OF PATHOLOGY AND [facility] Potassium 4.3 3.5 - 5.0 mEq/L [facility] DEPARTMENT PATHOLOGY AND GENOMIC [facility] Chloride 109 98 - 112 mEq/L [facility] PATHOLOGY [facility] CO2 24 24 - 31 mEq/L [facility] PATHOLOGY [facility] Anion gap 7@ANIO 7 - 15 mEq/L [facility] DEPARTMENT PATHOLOGY AND [facility] BUN 23 8 - 23 mg/dL [facility] PATHOLOGY AND [facility] Creatinine 1.2 0.7 - 1.2 mg/dL [facility] PATHOLOGY [facility] Glucose 123 (H) 65 - 99 mg/dL [facility] PATHOLOGY [facility] Calcium 7.8 (L) 8.8 - 10.2 mg/dL [facility] PATHOLOGY [facility] Specimen Plasma specimen Performing Organization Address [facility] Phone Number [address] * CBC with platelet and differential (03/28/2018 1:30 AM CDT) Only the most recent of 4 results within the time period is included. WBC 7.03 4.50 - 11.00 k/uL [facility] DEPARTMENT OF PATHOLOGY AND GENOMIC MEDICINE RBC 2.62 (L) 4.40 - 6.00 m/uL [facility] DEPARTMENT OF PATHOLOGY AND GENOMIC MEDICINE HGB 7.9 (L) 14.0 - 18.0 g/dL [facility] DEPARTMENT OF PATHOLOGY AND GENOMIC MEDICINE HCT 25.1 (L) 41.0 - 51.0 % [facility] DEPARTMENT OF PATHOLOGY AND GENOMIC MEDICINE MCV 95.8 82.0 - 100.0 fL [facility] DEPARTMENT OF PATHOLOGY AND GENOMIC MEDICINE MCH 30.2 27.0 - 34.0 pg [facility] DEPARTMENT OF PATHOLOGY AND GENOMIC MEDICINE MCHC 31.5 31.0 - 37.0 g/dL [facility] DEPARTMENT OF PATHOLOGY AND GENOMIC MEDICINE RDW - SD 57.2 (H) 37.0 - 55.0 fL [facility] DEPARTMENT OF PATHOLOGY AND GENOMIC MEDICINE MPV 11.7 8.8 - 13.2 fL [facility] DEPARTMENT OF PATHOLOGY AND GENOMIC MEDICINE Platelet count 68 (L) 150 - 400 k/uL [facility] DEPARTMENT OF PATHOLOGY AND GENOMIC MEDICINE Nucleated RBC 0.00 /100 WBC [facility] DEPARTMENT OF PATHOLOGY AND GENOMIC MEDICINE Neutrophils 70.1 (H) 39.0 - 69.0 % [facility] DEPARTMENT OF PATHOLOGY AND GENOMIC MEDICINE Lymphocytes 20.2 (L) 25.0 - 45.0 % [facility] DEPARTMENT OF PATHOLOGY AND GENOMIC MEDICINE Monocytes 6.8 0.0 - 10.0 % [facility] DEPARTMENT OF PATHOLOGY AND GENOMIC MEDICINE Eosinophils 2.3 0.0 - 5.0 % [facility] PATHOLOGY AND GENOMIC MEDICINE Basophils 0.3 0.0 - 1.0 % [facility] PATHOLOGY AND GENOMIC MEDICINE Specimen Blood Performing Organization Address City/[facility]/Zipcode Phone Number [facility] [address] [place] [address] PATHOLOGY AND GENOMIC MEDICINE * Smear review (03/28/2018 12:00 AM CDT) Smear review Smear Reviewed [facility] DEPARTMENT OF PATHOLOGY AND GENOMIC MEDICINE Performing Organization Address City/[facility]/Zipcode Phone Number [facility] [address] [place] [address] PATHOLOGY [facility] * Transfuse platelets (03/27/2018 1:03 PM CDT) Only the most recent of 2 results within the time period is included. * XR Chest 1 Vw Portable (03/27/2018 12:44 PM CDT) Narrative Performed At EXAMINATION:XR CHEST 1 VW PORTABLE [facility] CLINICAL HISTORY:Chest Pain COMPARISON:2017 FINDINGS: The [...] level of the anterior right third rib [id number] Procedure Note Interface, Radiology Results Incoming - 03/27/2018 1:15 [...] level of the anterior right third rib [id number] Performing Organization Address City/State/Zipcode Phone Number [facility] [address] [place] [address] * Transfuse RBC (03/26/2018 3:35 AM CDT) [...] No ascites. No pleural effusion is seen. [facility]-[id number] Procedure Note Interface, Radiology Results Incoming - 03/26/2018 3:12 [...] No ascites. No pleural effusion is seen. [facility]-[id number] Performing Organization Address City/[facility] Phone Number [facility] [address] [place] [address] * Prepare platelet pheresis, 1 Units (03/25/2018 10:30 PM CDT) Product name Apheresis Platelet ACDA LR #1 [facility] DEPARTMENT OF PATHOLOGY AND GENOMIC MEDICINE Unit number [id number] [facility] DEPARTMENT OF PATHOLOGY AND GENOMIC MEDICINE Product code [id number] [facility] DEPARTMENT OF PATHOLOGY AND GENOMIC MEDICINE Dispense status Transfused [facility] DEPARTMENT OF PATHOLOGY AND GENOMIC MEDICINE Blood expiration date [facility] DE[facility] OF PATHOLOGY AND GENOMIC MEDICINE Blood type code 9500 [facility] DEPART[facility] OF PATHOLOGY AND GENOMIC MEDICINE Blood type O NEGATIVE [facility] DEPARTMENT OF PATHOLOGY AND GENOMIC MEDICINE Performing Organization Address [facility] Phone Number [address] [place] [address] PATHOLOGY AND GENOMIC MEDICINE * Partial thromboplastin time, activated (03/25/2018 10:30 PM CDT) Only the most recent of 2 results within the time period is included. PTT 27.6 23.0 - 36.0 sec [facility] DEPARTMENT OF Comment: PATHOLOGY AND PTT therapeutic range for [facility] unfractionated heparin is 61.0-112.0 seconds which corresponds to Anti-Xa 0.3-0.7 U/ml. Specimen Blood Performing Organization Address [facility] Phone Number [facility] [address] [place] [address] PATHOLOGY AND GENOMIC MEDICINE * Prothrombin time with INR (03/25/2018 10:30 PM CDT) Only the most recent of 2 results within the time period is included. Prothrombin time 16.3 (H) 12.0 - 15.0 sec [facility] DEPARTMENT OF PATHOLOGY AND GENOMIC MEDICINE INR 1.3 [facility] DEPARTMENT OF Comment: PATHOLOGY AND The International Normalized GENOMIC MEDICINE Ratio (INR) is a therapeutic monitoring tool for patients who are stable on oral anticoagulant therapy. An INR of 2.0-3.0 is suggested for deep vein thrombosis/pulmonary embolism. Specimen Blood Performing Organization Address [facility] Phone Number [address] [place] [address] PATHOLOGY AND GENOMIC MEDICINE * Prepare RBC, 1 Units (03/25/2018 10:30 PM CDT) Product name Red Blood Cells -1, Leukored [facility] DEPARTMENT OF PATHOLOGY AND GENOMIC MEDICINE Unit number [id number] [facility] DEPARTMENT OF PATHOLOGY AND GENOMIC MEDICINE Product code [id number] [facility] DEPARTMENT OF PATHOLOGY AND GENOMIC MEDICINE Dispense status Transfused [facility] DEPARTMENT OF PATHOLOGY AND GENOMIC MEDICINE Blood expiration date [id number] [facility] DEPARTMENT OF PATHOLOGY AND GENOMIC MEDICINE Blood type code 5100 [facility] DEPARTMENT OF PATHOLOGY AND GENOMIC MEDICINE Blood type O POSITIVE [facility] DEPARTMENT OF PATHOLOGY AND GENOMIC MEDICINE Performing Organization Address [facility] Phone Number [address] [place] [address] PATHOLOGY AND GENOMIC MEDICINE * Type and screen (03/25/2018 10:30 PM CDT) ABO grouping O [facility] DEPARTMENT OF PATHOLOGY AND GENOMIC MEDICINE Rh type POS [facility] DEPARTMENT OF PATHOLOGY AND GENOMIC MEDICINE Antibody screen NEG [facility] DEPARTMENT OF PATHOLOGY AND GENOMIC MEDICINE Specimen Blood Performing Organization Address [facility] Phone Number [address] [place] [address] PATHOLOGY AND GENOMIC MEDICINE * Alcohol level, blood (03/25/2018 10:30 PM CDT) Alcohol None Detected mg/dL [facility] DEPARTMENT OF Comment: PATHOLOGY AND Normal GENOMIC MEDICINE None Detected Legal Intoxication in [place]80 mg/dL (0.08%) - Whole Blood Toxic Concentration 200 mg/dL (0.2%) Potentially Fatal3 50 - 500 mg/dL (0.35 - 0.5%) Alcohol percent None Detected % [facility] DEPARTMENT OF PATHOLOGY AND GENOMIC MEDICINE Specimen Plasma specimen Performing Organization Address [facility] Phone Number [facility] [place] [address] [place] [address] PATHOLOGY AND GENOMIC MEDICINE * Comprehensive metabolic panel (03/25/2018 10:30 PM CDT) Only the most recent of 2 results within the time period is included. Sodium 138 135 - 148 mEq/L [facility] DEPARTMENT OF PATHOLOGY AND GENOMIC MEDICINE Potassium 4.1 3.5 - 5.0 mEq/L [facility] DEPARTMENT OF PATHOLOGY AND GENOMIC MEDICINE Chloride 104 98 - 112 mEq/L [facility] DEPARTMENT OF PATHOLOGY AND GENOMIC MEDICINE CO2 23 (L) 24 - 31 mEq/L [facility] DEPARTMENT OF PATHOLOGY AND GENOMIC MEDICINE Anion gap 11@ANIO 7 - 15 mEq/L [facility] DEPARTMENT OF PATHOLOGY AND GENOMIC MEDICINE BUN 38 (H) 8 - 23 mg/dL [facility] DEPARTMENT OF PATHOLOGY AND GENOMIC MEDICINE Creatinine 1.0 0.7 - 1.2 mg/dL [facility] DEPARTMENT OF PATHOLOGY AND GENOMIC MEDICINE Glucose 223 (H) 65 - 99 mg/dL [facility] DEPARTMENT OF PATHOLOGY AND GENOMIC MEDICINE Calcium 8.5 (L) 8.8 - 10.2 mg/dL [facility] DEPARTMENT OF PATHOLOGY AND GENOMIC MEDICINE Protein 6.5 6.3 - 8.3 g/dL [facility] DEPARTMENT OF Comment: PATHOLOGY AND [place] GENOMIC MEDICINE 4.6-7.0 g/dL 1 week 4.4-7.6 g/dL 7 months-1year 5.1-7.3 g/dL 1-2 years5.6-7 .5 g/dL >3 years6.0-8 .0 g/dL 18-150 6.3-8.3 g/dL Albumin 3.1 (L) 3.5 - 5.0 g/dL [facility] DEPARTMENT OF PATHOLOGY AND GENOMIC MEDICINE A/G ratio 0.9 0.7 - 3.8 [facility] DEPARTMENT OF PATHOLOGY AND GENOMIC MEDICINE Alkaline phosphatase 80 40 - 129 U/L [facility] DEPARTMENT OF PATHOLOGY AND GENOMIC MEDICINE AST 163 (H) 10 - 50 U/L [facility] DEPARTMENT OF PATHOLOGY AND GENOMIC MEDICINE ALT 148 (H) 5 - 50 U/L [facility] DEPARTMENT OF PATHOLOGY AND GENOMIC MEDICINE Total bilirubin 1.5 (H) 0.0 - 1.2 mg/dL [facility] DEPARTMENT OF PATHOLOGY AND GENOMIC MEDICINE Specimen Plasma specimen Performing Organization Address City/[facility] [place] [address] [place] [address] PATHOLOGY AND GENOMIC MEDICINE * CRITICAL CARE [...] not definitive. 4. Probable bilateral renal cysts. [id number] Procedure Note Hm Interface, Radiology Results Incoming [...] not definitive. 4. Probable bilateral renal cysts. [facility]-[id number] Performing Organization Address City/State/Zipcode Phone Number [facility] [address] [place] [address] * Urinalysis screen and microscopy, with reflex to culture (03/25/2018 2:01 PM CDT) Specimen site Clean catch [facility] DEPARTMENT OF PATHOLOGY AND GENOMIC MEDICINE Color, UA Yellow [facility] DEPARTMENT OF PATHOLOGY AND GENOMIC MEDICINE Appearance, UA Clear [facility] DEPARTMENT OF PATHOLOGY AND GENOMIC MEDICINE Specific gravity, UA 1.017 1.001 - 1.035 [facility] DEPARTMENT OF PATHOLOGY AND GENOMIC MEDICINE pH, UA 7.0 5.0 - 8.5 [facility] DEPARTMENT OF PATHOLOGY AND GENOMIC MEDICINE Protein, UA Negative Negative [facility] DEPARTMENT OF PATHOLOGY AND GENOMIC MEDICINE Glucose, UA Negative Negative [facility] DEPARTMENT OF PATHOLOGY AND GENOMIC MEDICINE Ketones, UA Negative Negative [facility] DEPARTMENT OF PATHOLOGY AND GENOMIC MEDICINE Bilirubin, UA Negative Negative [facility] DEPARTMENT OF PATHOLOGY AND GENOMIC MEDICINE Blood, UA Negative Negative [facility] DEPARTMENT OF PATHOLOGY AND GENOMIC MEDICINE Nitrite, UA Negative Negative [facility] DEPARTMENT OF PATHOLOGY AND GENOMIC MEDICINE Urobilinogen, UA 2.0 (A) <2.0 [facility] DEPARTMENT OF PATHOLOGY AND GENOMIC MEDICINE Leukocyte esterase, UA Negative Negative [facility] DEPARTMENT OF PATHOLOGY AND GENOMIC MEDICINE WBC, UA 0-5 0 - 1 /HPF [facility] DEPARTMENT OF PATHOLOGY AND GENOMIC MEDICINE RBC, UA 0-5 0 - 5 /HPF [facility] DEPARTMENT OF PATHOLOGY AND GENOMIC MEDICINE Bacteria, UA None seen None seen [facility] DEPARTMENT OF PATHOLOGY AND GENOMIC MEDICINE Yeast, UA None seen [facility] DEPARTMENT OF PATHOLOGY AND GENOMIC MEDICINE Yeast with pseudohyphae, None seen [facility] DEPARTMENT OF UA PATHOLOGY AND GENOMIC MEDICINE Specimen Urine Performing Organization Address [facility] Phone Number [address] [place] [address] PATHOLOGY AND GENOMIC MEDICINE * Urine culture (03/25/2018 2:01 PM CDT) Urine culture SEE COMMENTComment: [facility] DEPARTMENT OF Bacteriuria screen negative. PATHOLOGY AND GENOMIC MEDICINE Specimen Urine Performing Organization Address [facility] Phone Number [address] [address] PATHOLOGY AND GENOMIC MEDICINE * Lipase level (03/25/2018 1:47 PM CDT) Lipase 30 13 - 60 U/L [facility] DEPARTMENT OF PATHOLOGY AND GENOMIC MEDICINE Specimen Plasma specimen Performing Organization Address [facility] Phone Number [address] [place] [address] PATHOLOGY AND GENOMIC MEDICINE * Amylase level (03/25/2018 1:47 PM CDT) Amylase 65 13 - 73 U/L [facility] DEPARTMENT OF PATHOLOGY AND GENOMIC MEDICINE Specimen Plasma specimen Performing Organization Address [facility] Phone Number [address] [place] [address] PATHOLOGY AND GENOMIC MEDICINE * Occult blood, stool (03/25/2018 1:20 PM CDT) Occult blood, stool Positive for Occult blood (A) [facility] DEPARTMENT OF Comment: PATHOLOGY AND Specimen Information GENOMIC MEDICINE Specimen Source: Stool Specimen Site: Not otherwise specified Specimen Stool - Not otherwise specified Performing Organization Address [facility] Phone Number [address] [place] [address] PATHOLOGY AND GENOMIC MEDICINE after 01/18/2018 Advance Directives Patient has advance care planning documents, and code status on file. For more i nformation, please contact: Shawn Fitzpatrick [address] [place] [address] Date Inactivated Comments Code Status Date Activated 01/06/2018 9:57 PM Full Code 01/02/2018 11:20 AM Code Status decision reached by: Patient
== END | disposition home or self-care (01) ==
LOC: OR 06:08
PROVIDERS: ATTEND Internal Medicine Gastroenterology
DX: K74.60 Unspecified cirrhosis of liver (principal); I85.11 Secondary esophageal varices with bleeding; D50.9 Iron deficiency anemia, unspecified; B18.2 Chronic viral hepatitis C; I85.00 Esophageal varices without bleeding; K44.9 Diaphragmatic hernia without obstruction or gangrene; Z68.39 Body mass index [BMI] 39.0-39.9, adult; R03.0 Elevated blood-pressure reading, without diagnosis of hypertension; Z01.812 Encounter for preprocedural laboratory examination; K76.6 Portal hypertension; K31.89 Other diseases of stomach and duodenum; G47.33 Obstructive sleep apnea (adult) (pediatric)
CPT/HCPCS: 36415; 43244; 80053; 85025; 85610; 85730; J2001; J2250; J2704; 43255